=== PATIENT | male | born 1935 | race Caucasian/White ===

== ENCOUNTER 2016-12-04 06:14 | Day surgery (SDC) | payer MEDICARE, OTHER ==
[~2016-12-04 06:14] MED LIST: Lactated Ringers 1,000 ML IV SCH
[2016-12-04] MEDS ORDERED: Propofol 200 MG/20 ML SDV ONE (07:56)
[2016-12-04] MEDS ORDERED: fentaNYL 100 MCG/2 ML SDV ONE (07:57)
[2016-12-04 10:19] VITALS: BP 138/80
--- NOTE | 2016-12-04 14:06 | OR ---
DATE OF SURGERY: 12/04/2016 REFERRING PROVIDER: Karen Mota DO. PRE-OPERATIVE DIAGNOSES: History of colon polyps. Last colonoscopy was 12/07/2014 and the patient had recurrent linear sessile rectal polyp measuring 2 mm x 8 mm in size removed with multiple small bites of cold forceps. POST-OPERATIVE DIAGNOSES: Moderate left-sided diverticulosis. Otherwise normal colonoscopy without any recurrent rectal polyps. PROCEDURE: Flexible sigmoidoscopy. SURGEON: Eddie Adams M.D. ANESTHESIA: Monitored anesthesia care. BOWEL PREP: Good. DESCRIPTION OF OPERATION: Donn is an 81-year-old. The patient was brought to the endoscopy suite after discussing risks and benefits of the procedure. Informed consent was obtained for conscious sedation and colonoscopy with or without biopsy and/or polypectomy. We also discussed possibility of missed lesions. Pre-procedure exam was unremarkable. IV, oxygen, and monitors were placed. The patient was placed in the left lateral decubitus position. Sedation was administered and a digital Rectal exam was performed and unremarkable. Colonoscope was passed into the rectum and slowly advanced to the splenic flexure. The colonoscope was slowly withdrawn. Mucosa was closely observed in a direct circumferential manner. Descending and sigmoid colon were remarkable for some moderate diverticulosis. Retroflexion was performed. Rectal mucosa was unremarkable. There was no recurrent rectal polyp or polyps seen. Scope was removed. The patient tolerated the procedure well. The patient was monitored until that baseline status. Discharge instructions were reviewed and the patient was discharged in good condition. COMPLICATIONS: None. TOTAL TIME: 6 minutes. ESTIMATED BLOOD LOSS: None. RECOMMENDATIONS/FOLLOW-UP: The patient can likely be done with colonoscopies. He is good at least for another 3 years and then at that point, we can decide if he wants to undergo any further colon cancer screening depending on his health status and the patient preference at that time. I would like to kindly thank Karen Mota for this referral. DMB: 12/04/2016 11:44:03 MODL: 12/04/2016 13:48:28 /[id number]
--- NOTE | 2016-12-04 15:35 | OR ---
SURGERY DATE: 12/04/2016 REFERRING PROVIDER: Karen Mota DO. PREOPERATIVE DIAGNOSES: 1. History of Faith's esophagus. 2. Positive family history of stomach cancer. 3. Recent voice hoarseness. POSTOPERATIVE DIAGNOSES: 1. A 16 cm segment of Faith's esophagus (previously this had been 10 cm). The patient has only held his Plavix yesterday, so no biopsies were taken given risk of bleeding. I would recommend the patient holding Plavix for 5- 7 days prior to doing the number of biopsies that would be required. 2. Large hiatal hernia about 5 cm in length and fairly bulbous. 3. Mild gastritis. PROCEDURE: Esophagogastroduodenoscopy without any biopsies taken. SURGEON: Eddie Adams M.D. ANESTHESIA: Monitored anesthesia care. DESCRIPTION OF PROCEDURE: Donn is an 81-year-old male who was brought to the endoscope suite after discussion of risks and benefits (including but not limited to reaction to medication, bleeding, infection, aspiration, perforation). Informed consent was obtained for monitored anesthesia care and esophagogastroduodenoscopy along with possible biopsy and/or dilatation. Pre-procedure exam including oral cavity was unremarkable. IV, oxygen, and monitors were placed. Patient was placed in the left lateral position and sedation was administered. A bite block was placed gently and scope lightly lubricated and passed through the bite block and over the tongue. Hypopharynx and vocal cords were visualized and unremarkable. Scope was passed through the cricopharynx and into the esophagus. The scope was then passed through the distal esophagus and the GE junction was visualized and photographed. GE junction was remarkable for large bulbous hiatal hernia measured about 5 cm in length. Segment of Faith's esophagus was seen extending from the diaphragmatic opening up to 16 cm above this where the Z-line was located. I did not appreciate any gross mucosal irregularities or abnormalities. Biopsies were not taken given the patient only held his Plavix yesterday and this morning. Vocal cords were visualized and unremarkable. The scope was advanced into the stomach and gastric longo was suctioned. Pylorus was identified and intubated and then the scope was advanced to the third portion of the duodenum. The second and third portions of the duodenum were unremarkable. The duodenal bulb was visualized and unremarkable. Scope brought back into the stomach and the pylorus and antrum as well as the stomach, body, and fundus revealed some mild gastritis. The scope was retroflexed to visualize the angularis, fundus, body, and cardia. These were remarkable for some mild gastritis. The stomach was desufflated of air and then the scope was slowly withdrawn, and the esophagus was closely visualized during withdrawal all the way into the posterior pharynx. In the upper esophagus there was an area of heterotopic type mucosa. The patient tolerated the procedure well and went to recovery in stable condition. The patient was monitored until at baseline status. Findings and discharge instructions were reviewed and the patient was discharged in good condition. COMPLICATIONS: None. TOTAL TIME: 8 minutes. ESTIMATED BLOOD LOSS: None. RECOMMENDATIONS/FOLLOWUP: It is reassuring that there are no gross mucosal abnormalities or irregularities noted to the large segment of Faith's. Given the fact that the patient has only held his Plavix yesterday and this morning, biopsies were not taken given the risk of bleeding, given the shear number of biopsies that are typically recommended with Faith's. This would be four- quadrant biopsies every 2 cm. If the patient desires, he can return and have the procedure done after he has held the Plavix for 5-7 days; otherwise, we would just plan to repeat in about 3 years depending on health status and the patient preference at that time. I am going to have the patient start on famotidine 20 mg twice a day for GI prophylaxis given his mild gastritis as well as chronic Plavix use. I would like to kindly thank Dr. Karen Mota for this referral. DMB: 12/04/2016 11:40:01 MODL: 12/04/2016 15:28:49 /[id number]
== END 2016-12-04 09:45 | disposition home or self-care (01) ==
LOC: VM.SDS 06:14
PROVIDERS: ATTEND Family Medicine
DX: Z12.11 Encounter for screening for malignant neoplasm of colon (principal); K29.70 Gastritis, unspecified, without bleeding; K57.30 Diverticulosis of large intestine without perforation or abscess without bleeding; K22.70 Barrett's esophagus without dysplasia; K44.9 Diaphragmatic hernia without obstruction or gangrene; Z86.010 Personal history of colon polyps; E78.00 Pure hypercholesterolemia, unspecified; E03.9 Hypothyroidism, unspecified; I12.9 Hypertensive chronic kidney disease with stage 1 through stage 4 chronic kidney disease, or unspecified chronic kidney disease; N18.3 Chronic kidney disease, stage 3 (moderate); F41.9 Anxiety disorder, unspecified; Z98.890 Other specified postprocedural states; Z90.49 Acquired absence of other specified parts of digestive tract; Z79.899 Other long term (current) drug therapy; Z88.0 Allergy status to penicillin; Z88.8 Allergy status to other drugs, medicaments and biological substances; Z91.010 Allergy to peanuts; E53.8 Deficiency of other specified B group vitamins
CPT/HCPCS: 00810; 43235; G0105; J2704; J3010; J7120

== ENCOUNTER 2017-07-22 15:41 | Inpatient (IN) | payer MEDICARE, OTHER ==
[2017-07-22] MEDS ORDERED: Acetaminophen 325 MG Tab PO PRN (15:51)
[2017-07-22] MEDS ORDERED: Ondansetron 4 MG Tab.DIS PO PRN (15:51)
--- NOTE | 2017-07-22 16:10 | PCM.HP ---
H&P History of Present Illness - General Date of Service: 07/22/17 Admit Problem/Dx: Admission Diagnosis/Problem Admission Diagnosis/Problem Influenza due to influenza A virus - History of Present Illness Initial Comments - Free Text/Narative: 82 yo seen on 07/20 tested positive for influenza A got sick 5 pm on 07/18. Was started on Tamiflu took starting yesterday due to availability also on Zithromax but CXR did not show a pneumonia. Has a hx of chronic bronchitis and MAC has seen pulmonary before. Also has a hx of aspestos exposure. Is using proair. Has been coughing a lot not able to eat, has lost 10 lbs. He has CKD. Last Cr 1.37 in March. He did have the flu shot in March. Duration of Symptoms: Reports: Day(s): - Related Data Allergies/Adverse Reactions: Allergies Allergy/AdvReac Type Severity Reaction Status Date / Time peanut Allergy Anaphylactic Verified 12/04/16 06:41 Shock Penicillins Allergy Other Verified 12/04/16 06:41 sertraline HCl [From Zoloft] Allergy Fatigue Verified 12/04/16 06:41 trazodone Allergy Anxiety Verified 12/04/16 06:41 Home Medications: Home Meds Brimonidine/Timolol [Combigan 0.2%/0.5% Ophth Soln] 1 drop EYEBOTH BID 11/29/14 [History] Clopidogrel [Plavix] 75 mg PO DAILY 11/29/14 [History] Latanoprost [Xalatan 0.005% Ophth Soln] 1 drop EYEBOTH BEDTIME 11/29/14 [History ] Levothyroxine 112 mcg PO DAILY 11/29/14 [History] Pravastatin [Pravachol] 10 mg PO DAILY 11/29/14 [History] Sildenafil [Viagra] 1 tab PO DAILY PRN 11/29/14 [History] amLODIPine [Norvasc] 5 mg PO DAILY 11/29/14 [History] Albuterol [IJD: Ventolin HFA] 2 puff PO Q4H PRN 12/01/16 [History] Past Medical History HEENT History: Reports: Allergic Rhinitis, Glaucoma, Sinusitis Cardiovascular History: Reports: High Cholesterol, Hypertension Respiratory History: Reports: COPD, Other (See Below) Other Respiratory History: asbestos exposure Gastrointestinal History: Reports: Diverticulosis, PUD, Other (See Below) Other Gastrointestinal History: rectal adenoma. barretts esophagus Genitourinary History: Reports: Other (See Below) Other Genitourinary History: elevated PSA. ED Musculoskeletal History: Reports: Gout Neurological History: Reports: None, CVA (occipital stroke in 2013) Psychiatric History: Reports: Anxiety Endocrine/Metabolic History: Reports: Hypothyroidism Hematologic History: Reports: Anemia, Iron Deficiency Immunologic History: Reports: None Oncologic (Cancer) History: Reports: None Dermatologic History: Reports: None - Past Surgical History Head Surgeries/Procedures: Reports: None HEENT Surgical History: Reports: Other (See Below) Other HEENT Surgeries/Procedures: occiptal stroke Cardiovascular Surgical History: Reports: None GI Surgical History: Reports: Appendectomy, Hernia, Inguinal Musculoskeletal Surgical History: Reports: None Oncologic Surgical History: Reports: None Social & Family History - Tobacco Use Smoking Status *Q: Never Smoker Second Hand Smoke Exposure: Yes - Caffeine Use Caffeine Use: Reports: Coffee, Soda - Recreational Drug Use Recreational Drug Use: No Drug Use in Last 12 Months: No H&P Review of Systems - Review of Systems: Review Of Systems: See Below General: Reports: Fever, Chills, Malaise, Fatigue, Decreased Appetite, Weight Loss HEENT: Reports: Sinus Congestion, Sore Throat Pulmonary: Reports: Shortness of Breath, Cough, Sputum. Denies: Wheezing, Pleuritic Chest Pain Cardiovascular: Reports: Dyspnea on Exertion, Lightheadedness. Denies: Chest Pain Gastrointestinal: Denies: No Symptoms Musculoskeletal: Reports: Muscle Pain Skin: Reports: No Symptoms Psychiatric: Reports: No Symptoms Neurological: Reports: No Symptoms Hematologic/Lymphatic: Reports: Anemia Immunologic: Reports: No Symptoms Exam - Exam Exam: See Below - Vital Signs Weight: 84.459 kg - Exam General: Alert, Oriented, Mild Distress HEENT: Conjunctiva Clear, EACs Clear, EOMI, Hearing Intact, Mucosa Moist & [place] , Posterior Pharynx Clear, Pupils Equal, Pupils Reactive, TMs Clear Neck: Supple, Trachea Midline, Full Range of Motion. No: Lymphadenopathy Lungs: Decreased Breath Sounds, Rhonchi Cardiovascular: Regular Rate, Regular Rhythm GI/Abdominal Exam: Normal Bowel Sounds, Soft Extremities: Normal Inspection, No Pedal Edema. No: Mottled Skin: Warm, Dry, Intact Neurological: Cranial Nerves Intact Neuro Extensive - Mental Status: Alert, Oriented x3, Memory Intact Psychiatric: Alert, Normal Affect, Normal Mood Physical Exam Comments:: slight bruising noted below both eyes *Q Meaningful Use (ADM) - VTE *Q VTE Criteria *Q: - Stroke *Q Stroke Criteria *Q: - AMI *Q AMI Criteria *Q: - Problem List (1) CKD (chronic kidney disease) stage 3, GFR 30-59 ml/min SNOMED Code(s): 487863183 ICD Code: N18.3 - CHRONIC KIDNEY DISEASE, STAGE 3 (MODERATE) Status: Chronic Priority: High Current Visit: Yes (2) Influenza A SNOMED Code(s): 829216201 ICD Code: J10.1 - FLU DUE TO OTH IDENT INFLUENZA VIRUS W OTH RESP MANIFEST Status: Acute Priority: High Current Visit: Yes (3) Chronic bronchitis SNOMED Code(s): 18163229 ICD Code: J42 - UNSPECIFIED CHRONIC BRONCHITIS Status: Chronic Priority: High Current Visit: Yes Qualifiers: Chronic bronchitis type: simple Qualified Code(s): J41.0 - Simple chronic bronchitis (4) History of stroke SNOMED Code(s): 804754703 ICD Code: Z86.73 - PRSNL HX OF TIA (TIA), AND CEREB INFRC W/O RESID DEFICITS Status: Chronic Priority: Medium Current Visit: No (5) Essential (primary) hypertension SNOMED Code(s): 77932601 ICD Code: I10 - ESSENTIAL (PRIMARY) HYPERTENSION Status: Chronic Priority : Medium Current Visit: Yes (6) Puckett esophagus SNOMED Code(s): 397545493 ICD Code: K22.70 - PUCKETT'S ESOPHAGUS WITHOUT DYSPLASIA Status: Chronic Priority: Medium Current Visit: No Qualifiers: Puckett's esophagus type: without dysplasia Qualified Code(s): K22.70 - Puckett's esophagus without dysplasia (7) Iron deficiency anemia SNOMED Code(s): 96538337 ICD Code: D50.9 - IRON DEFICIENCY ANEMIA, UNSPECIFIED Status: Acute Priority: Medium Current Visit: Yes Qualifiers: Iron deficiency anemia type: unspecified iron deficiency Qualified Code(s) : D50.9 - Iron deficiency anemia, unspecified (8) Mycobacterial infection, non-TB SNOMED Code(s): 438720975 ICD Code: A31.9 - MYCOBACTERIAL INFECTION, UNSPECIFIED Status: Acute Priority: Low Current Visit: No (9) Rhinitis SNOMED Code(s): 87543484 ICD Code: J31.0 - CHRONIC RHINITIS Status: Acute Priority: Medium Current Visit: Yes Qualifiers: Allergic rhinitis trigger: unspecified Allergic rhinitis seasonality: non- seasonal Problem List Initiated/Reviewed/Updated: Yes Orders Last 24hrs: Active Orders 24 hr Category Date Time Status Admission Status [Patient Status] [ADT] Routine ADT 07/22/17 15:45 Active Blood Glucose Check, Bedside [RC] BIDMEALS Care 07/22/17 15:51 Ordered Intake and Output [RC] QSHIFT Care 07/22/17 15:53 Ordered Oxygen Therapy [RC] PRN Care 07/22/17 15:53 Ordered RT Aerosol Therapy [RC] ASDIRECTED Care 07/22/17 15:54 Ordered Up With Assistance [RC] ASDIRECTED Care 07/22/17 15:51 Ordered VTE/DVT Education [RC] PER UNIT ROUTINE Care 07/22/17 15:53 Ordered Vital Signs [RC] Q4H Care 07/22/17 15:53 Ordered Regular Diet [DIET] Diet 07/22/17 Dinner Ordered Chest 2V [CR] Routine Exams 07/22/17 15:51 Ordered BASIC METABOLIC PANEL,BMP [CHEM] Stat Lab 07/22/17 15:51 Ordered CBC WITH AUTO DIFF [HEME] Stat Lab 07/22/17 15:51 Ordered Acetaminophen [Tylenol] Med 07/22/17 15:51 Ordered 650 mg PO Q4H PRN Albuterol/Ipratropium [DuoNeb 3.0-0.5 MG/3 ML] Med 07/22/17 16:00 Ordered 3 ml NEB QID Lactated Ringers @ 125 MLS/HR(1000ml) Med 07/22/17 16:00 Ordered Lactated Ringers [Ringers, Lactated] 1,000 ml IV ASDIRECTED Ondansetron [Zofran ODT] Med 07/22/17 15:51 Ordered 4 mg PO Q4H PRN Resuscitation Status Routine Resus Stat 07/22/17 15:51 Ordered Medication Orders Acetaminophen (Tylenol) 650 mg PO Q4H PRN PRN Reason: Pain (Mild 1-3)/fever Albuterol/Ipratropium (Duoneb 3.0-0.5 Mg/3 Ml) 3 ml NEB QID LARRY Lactated Ringer's (Ringers, Lactated) 1,000 mls @ 125 mls/hr IV ASDIRECTED [facility] Ondansetron HCl (Zofran Odt) 4 mg PO Q4H PRN PRN Reason: nausea, able to take PO Assessment/Plan Comment:: Influenza A Dehydration with CKD Chronic bronchitis with exacerbation due to influenza Chronic iron deficiency anemia Plan Check labs and X-ray Continue Tamiflu but with renal dosing Continue home meds IV fluids Scheduled nebs May need prednisone we will monitor Oxygen Doubt a secondary infection this early so we will decide after reviewing labs if he needs to continue zithromax although with his chronic lung disease it is probably fine to just finish his course will review labs to decide on dvt prophylaxis
[2017-07-22] MEDS: Albuterol/Ipratropium 3.0-0.5 MG/3 ML Neb Soln NEB SCH ×2 (16:34→19:50)
[2017-07-22] MEDS: Lactated Ringers 1,000 ML IV SCH (16:35)
[2017-07-22] MEDS: Oseltamivir 30 MG Cap PO SCH ×2 (17:46→19:51)
[2017-07-22] MEDS ORDERED: Levofloxacin 500 MG Tab PO ONE (19:04)
[2017-07-22] MEDS: Latanoprost 0.005% Ophth Soln 2.5 ML Bottle EYEBOTH SCH (19:51)
[2017-07-23] MEDS: Lactated Ringers 1,000 ML IV SCH (00:33)
[2017-07-23] MEDS: Albuterol/Ipratropium 3.0-0.5 MG/3 ML Neb Soln NEB SCH (06:31)
[2017-07-23] MEDS ORDERED: Levothyroxine 112 MCG Tab PO SCH (08:00)
[2017-07-23] MEDS ORDERED: Azithromycin 250 MG Tab PO SCH (08:00)
[2017-07-23] MEDS ORDERED: Albuterol 0.083% 2.5 MG/3 ML Neb Soln NEB PRN (08:25)
[2017-07-23] MEDS ORDERED: predniSONE 20 MG Tab PO ONE (08:26)
[2017-07-23] MEDS ORDERED: Take Home: Albuterol 6.7 GM Inhaler, 1 Inhaler Pack INH PRN (08:30)
[2017-07-23] MEDS ORDERED: Levofloxacin 500 MG Tab PO SCH (08:30)
--- NOTE | 2017-07-23 09:07 | PN ---
Progress Note for KELSI BAUER Date: 07/23/2017 Room #: VM.203 SUBJECTIVE: This is a hospital day #2, on an 82-year-old admitted with influenza and pneumonia. He has a left lower lobe infiltrate. He is having some lower rib pain from coughing. He states he is not feeling any better, but not any worse. He has been afebrile. Oxygen saturations had been at 90% or above. When he coughs the lower rib pain is worse. He is eating and drinking. OBJECTIVE: Vital Signs: Temperature 97.4, pulse 83, blood pressure 152/89, respiratory rate 18, and O2 of 95% on room air. General: He is in no acute distress. Heart: Regular rate and rhythm. Lungs: Lung sounds show some decreased entry throughout. He has more rhonchi noted over the left base. He has some mild expiratory wheezing. Abdomen: Positive bowel sounds. Soft and nontender. Extremities: Warm and dry. No edema. Mental Status: Alert and orientated x3. LABORATORY DATA: Lab work shows a white count of 5.6, hemoglobin 9.9, and platelets 251. Sodium 139, potassium 3.6, chloride 103, bicarbonate 26, BUN 17, creatinine 1.4, glucose 93, calcium 8.3. ASSESSMENT AND PLAN: 1. Influenza B with left lower lobe pneumonia. He was started on Levaquin yesterday. We will discontinue azithromycin. Continue 500 mg daily for renal dosing as well. 2. Chronic bronchitis. We will change his nebs to p.r.n. as they are making him cough more. I will give him just albuterol. We will restart his ProAir. We will get him on a flutter valve. We will start some Mucinex to help with cough and I will give him a dose of 20 mg of prednisone likely due to exacerbation from the pneumonia. 3. Remote history of stroke. 4. Essential hypertension. Blood pressures are mildly up today. He is on his Norvasc. We will stop fluids. 5. Chronic kidney disease with mild dehydration. His creatinine improved from 1.6 to 1.4, which is in his baseline. 6. Chronic iron-deficiency anemia with worsening hemoglobin, probably due to some hemodilution. We will repeat tomorrow. 7. History of Faith's esophagus. 8. History of MAC. 9. Chronic rhinitis. 10.Rib pain from coughing. PLAN: At this point, the patient will continue oral Levaquin. We will give him a dose of 20 mg of prednisone. We will stop fluids. We will have Mucinex, available flutter valve. We will restart his ProAir. We will change the nebs to p.r.n. We will see how he does and anticipate that likely he may be able to be discharged home as soon as tomorrow. MKA: 07/23/2017 08:31:18 MODL: 07/23/2017 09:01:50 /[id number]
[2017-07-23] MEDS: Oseltamivir 30 MG Cap PO SCH ×2 (10:04→20:38)
[2017-07-23] MEDS: amLODIPine 5 MG Tab PO SCH (10:04)
[2017-07-23] MEDS: guaiFENesin 600 MG Tab.ER PO SCH ×2 (10:05→20:38)
[2017-07-23] MEDS: Clopidogrel 75 MG Tab PO SCH (10:09)
[2017-07-23] MEDS ORDERED: Simvastatin 10 MG Tab PO SCH (20:00)
[2017-07-23] MEDS: Latanoprost 0.005% Ophth Soln 2.5 ML Bottle EYEBOTH SCH (20:39)
[2017-07-24 05:43] VITALS: BP 131/81
[2017-07-24] MEDS ORDERED: Levofloxacin 500 MG Tab PO SCH (07:00)
[2017-07-24] MEDS ORDERED: Levothyroxine 112 MCG Tab PO SCH (07:00)
[2017-07-24] MEDS: amLODIPine 5 MG Tab PO SCH (07:47)
[2017-07-24] MEDS: guaiFENesin 600 MG Tab.ER PO SCH (07:47)
[2017-07-24] MEDS: Clopidogrel 75 MG Tab PO SCH (07:47)
[2017-07-24] MEDS: Oseltamivir 30 MG Cap PO SCH (07:47)
[2017-07-24] MEDS ORDERED: predniSONE 20 MG Tab PO SCH (08:33)
--- NOTE | 2017-07-25 13:50 | DISCH ---
PRIMARY DISCHARGE DIAGNOSES: 1. Influenza A. 2. Left mid lung pneumonia, suspected bacterial, but could be related to influenza, not improving on outpatient azithromycin. Blood cultures and sputum cultures were not done as he was already on antibiotics and he did not meet criteria for sepsis. 3. Remote history of stroke. 4. Essential hypertension. 5. Chronic kidney disease with mild dehydration, improved with a creatinine of 1.4 on discharge. 6. Acute on chronic anemia due to hemodilution. His hemoglobin was stable at 10.4 on discharge. 7. History of Faith's esophagus. 8. History of MAC. 9. Chronic rhinitis. 10.Rib pain from coughing, improved. 11.Bronchitis with exacerbation due to pneumonia and influenza, improving on prednisone. REASON FOR ADMISSION: On the date of admission, this 82-year-old male came to the clinic. He had had known influenza for about 4 days, was diagnosed 2 days previous, and has been on Tamiflu for 1 day, but he was not eating. He was not drinking. He was doing poorly. He was dehydrated. He was short of breath. He was admitted to [facility]. He had laboratories showing his creatinine to have went up to 1.6, but his baseline is around 1.3 to 1.5-1.6. He, otherwise, got IV fluids. He did not require any oxygen. He was placed on scheduled nebulizers, but these seemed to make him cough more, so they were stopped and changed to p.r.n. He was not needing nebulizers, but did get a dose of oral prednisone 20 mg, which seemed to help his breathing and wheezing and overall lungs sounds were improving. He was up. He was ambulatory in his room. Overall, he was still feeling weak and tired, but better and this was expressed that this was to be expected after his influenza illness. His Tamiflu was adjusted for renal dosing. On discharge, he had normal white count. He never had an elevated white count during his stay. PHYSICAL EXAMINATION: VITAL SIGNS: Discharge vitals; temperature 97.3, pulse 80, blood pressure 131/81, respiratory rate 19, and O2 of 93% on room air. GENERAL: He is in no acute distress. HEART: Regular rate and rhythm. S1 and S2 without murmur. RESPIRATORY: Lungs sounds show some rhonchi throughout with mild expiratory wheezing, but overall I feel it is improved. EXTREMITIES: Warm and dry. No edema. No calf tenderness. MENTAL STATUS: Alert and orientated x3. DISCHARGE PLANS AND INSTRUCTIONS: He will see Dr. Mota in 1 week for post- hospital followup in the clinic. No x-ray will be needed unless his symptoms worsen. He will also take Tylenol as needed for pain. He will be on prednisone 20 mg daily for 4 more days, Levaquin 500 mg daily for 3 days, and Zithromax is stopped. Tamiflu, he will complete his last 3 doses. He has a 75 mg dose at home. His creatinine did improve slightly, so we will just have him do this rather than picking up a new supply. He cannot also split the capsules. Otherwise, he will do cough, deep breaths. Use his ProAir inhaler as needed. Use Mucinex. Deep vein thrombosis prophylaxis was not started during his stay due to concern for his drop in hemoglobin. He did have a short stay less than 48 hours and was encouraged to be up and ambulating. MKA: 07/24/2017 08:38:58 MODL: 07/25/2017 13:03:42 /[id number]
== END 2017-07-24 09:35 | disposition home or self-care (01) | DRG 195 ==
LOC: VM.MS 15:45
PROVIDERS: ADMIT Internal Medicine; ATTEND Internal Medicine
DX: J11.00 Influenza due to unidentified influenza virus with unspecified type of pneumonia (principal); J42 Unspecified chronic bronchitis; Z86.73 Personal history of transient ischemic attack (TIA), and cerebral infarction without residual deficits; K22.70 Barrett's esophagus without dysplasia; D50.9 Iron deficiency anemia, unspecified; J31.0 Chronic rhinitis; E86.0 Dehydration; I12.9 Hypertensive chronic kidney disease with stage 1 through stage 4 chronic kidney disease, or unspecified chronic kidney disease; N18.3 Chronic kidney disease, stage 3 (moderate); Z88.0 Allergy status to penicillin; Z88.8 Allergy status to other drugs, medicaments and biological substances; Z91.010 Allergy to peanuts; Z79.02 Long term (current) use of antithrombotics/antiplatelets; Z79.899 Other long term (current) drug therapy; H40.9 Unspecified glaucoma; J44.9 Chronic obstructive pulmonary disease, unspecified; Z77.090 Contact with and (suspected) exposure to asbestos; F41.9 Anxiety disorder, unspecified; E03.9 Hypothyroidism, unspecified
CPT/HCPCS: 36415; 71046; 80048; 82962; 85025; 94640; 94667; 94668; A9270-GY; J7120; J7620-GY

== ENCOUNTER 2021-04-29 11:58 | Emergency (ER) | payer MEDICARE, OTHER ==
[2021-04-29] MEDS ORDERED: Sodium Chloride 0.9% 1,000 ML IV ONE (12:07)
[2021-04-29] MEDS ORDERED: Sodium Chloride 0.9% 10 ML Syringe FLUSH PRN (12:07)
[2021-04-29] MEDS ORDERED: Ondansetron 4 MG/2 ML SDV IVPUSH ONE (12:11)
--- NOTE | 2021-04-29 12:15 | EDM.PDOC ---
ED HPI GENERAL MEDICAL PROBLEM - General Chief Complaint: General Stated Complaint: FATIGUE Time Seen by Provider: 04/29/21 12:05 Source of Information: Reports: Patient History Limitations: Reports: No Limitations - History of Present Illness INITIAL COMMENTS - FREE TEXT/NARRATIVE: Patient presents to the ED complaining of weakness and fatigue. He received COVID booster on and felt fine. However on Thursday developed nausea, diarrhea and fatigue. Has had very poor po intake of both food and water. No complaints of chest pain, sob. No urinary symptoms. No longer having nausea or diarrhea. Chief complaint today is weakness and fatigue. Onset: Gradual Severity: Moderate Associated Symptoms: Reports: Loss of Appetite, Malaise, Weakness - Related Data Allergies Allergy/AdvReac Type Severity Reaction Status Date / Time peanut Allergy Severe Anaphylactic Verified 07/05/20 08:29 Shock Penicillins Allergy Other Verified 07/05/20 08:29 sertraline HCl [From Zoloft] AdvReac Fatigue Verified 07/05/20 08:29 trazodone AdvReac Anxiety Verified 07/05/20 08:29 Home Meds: Home Meds Brimonidine/Timolol [Combigan 0.2%/0.5% Ophth Soln] 1 drop EYEBOTH BID 11/29/14 [History] Clopidogrel [Plavix] 75 mg PO DAILY 11/29/14 [History] Latanoprost [Xalatan 0.005% Ophth Soln] 1 drop EYEBOTH BEDTIME 11/29/14 [History] Levothyroxine 112 mcg PO DAILY 11/29/14 [History] amLODIPine [Norvasc] 5 mg PO DAILY 11/29/14 [History] Albuterol [Proventil HFA] 2 puff INH Q6H PRN 06/06/20 [History] Triamcinolone Acetonide [Kenalog 0.1% Crm] 1 applic TOP BID PRN 06/06/20 [History] Umeclidinium Brm/Vilanterol Tr [Anoro Ellipta 62.5-25 MCG] 1 puff IH DAILY 06/06/20 [History] Cyanocobalamin (Vitamin B-12) [Vitamin B-12] 1,000 mg PO DAILY 06/28/20 [History] Furosemide [Lasix] 20 mg PO DAILY 06/28/20 [History] Omeprazole 40 mg PO DAILY 07/17/20 [History] Past Medical History HEENT History: Reports: Allergic Rhinitis, Glaucoma, Sinusitis Cardiovascular History: Reports: High Cholesterol, Hypertension Respiratory History: Reports: COPD, Other (See Below) Other Respiratory History: asbestos exposure Gastrointestinal History: Reports: Diverticulosis, PUD, Other (See Below) Other Gastrointestinal History: rectal adenoma. barretts esophagus Genitourinary History: Reports: Chronic Renal Insuffiency, Other (See Below) Other Genitourinary History: elevated PSA. ED Musculoskeletal History: Reports: Gout Neurological History: Reports: None, CVA Psychiatric History: Reports: Anxiety Endocrine/Metabolic History: Reports: Hypothyroidism Hematologic History: Reports: Anemia, B12 Deficiency, Iron Deficiency Immunologic History: Reports: None Oncologic (Cancer) History: Reports: None Dermatologic History: Reports: None - Infectious Disease History Infectious Disease History: Reports: Chicken Pox, Influenza - Past Surgical History Head Surgeries/Procedures: Reports: None HEENT Surgical History: Reports: Other (See Below) Other HEENT Surgeries/Procedures: occiptal stroke Cardiovascular Surgical History: Reports: None GI Surgical History: Reports: Appendectomy, Hernia, Inguinal Musculoskeletal Surgical History: Reports: None Oncologic Surgical History: Reports: None Social & Family History - Family History Family Medical History: No Pertinent Family History - Caffeine Use Caffeine Use: Reports: Coffee ED ROS GENERAL - Review of Systems Review Of Systems: See Below Constitutional: Reports: Weakness, Fatigue HEENT: Reports: No Symptoms Respiratory: Reports: No Symptoms Cardiovascular: Reports: No Symptoms Endocrine: Reports: No Symptoms GI/Abdominal: Reports: No Symptoms : Reports: No Symptoms Musculoskeletal: Reports: No Symptoms Skin: Reports: No Symptoms Neurological: Reports: No Symptoms Psychiatric: Reports: No Symptoms Hematologic/Lymphatic: Reports: No Symptoms Immunologic: Reports: No Symptoms ED EXAM, GENERAL - Physical Exam Exam: See Below Exam Limited By: No Limitations General Appearance: Alert, WD/WN, No Apparent Distress Ears: Normal External Exam, Normal Canal, Hearing Grossly Normal, Normal TMs Ear Exam: Bilateral Ear: Auricle Normal, Canal Normal, TM normal Nose: Normal Inspection, Normal Mucosa, No Blood Throat/Mouth: Normal Inspection, Normal Lips, Normal Teeth, Normal Gums, Normal Oropharynx, Normal Voice, No Airway Compromise Head: Atraumatic, Normocephalic Neck: Normal Inspection, Supple, Non-Tender, Full Range of Motion Respiratory/Chest: No Respiratory Distress, Lungs Clear, Normal Breath Sounds, No Accessory Muscle Use, Chest Non-Tender Cardiovascular: Normal Peripheral Pulses, Regular Rate, Rhythm, No Edema, No Gallop, No JVD, No Murmur, No Rub GI/Abdominal: Normal Bowel Sounds, Soft, Non-Tender, No Organomegaly, No Distention, No Abnormal Bruit, No Mass Back Exam: Normal Inspection, Full Range of Motion, NT Extremities: Normal Inspection, Normal Range of Motion, Non-Tender, Normal Capillary Refill, No Pedal Edema Neurological: Alert, Oriented, CN II-XII Intact, Normal Cognition, Normal Gait, Normal Reflexes, No Motor/Sensory Deficits Psychiatric: Normal Affect, Normal Mood Skin Exam: Warm, Dry, Intact, Normal Color, No Rash Lymphatic: No Adenopathy #1 Interpretation EKG Date: 04/29/21 Time: 12:14 Rhythm: NSR Rate (Beats/Min): 79 [place]: Normal P-Wave: Present QRS: Normal ST-T: Normal QT: Normal Comparison: NA - No Prior EKG Course - Vital Signs Last Recorded V/S: Last Vital Signs Temp 36.6 C 04/29/21 12:00 Pulse 96 04/29/21 12:00 Resp 18 04/29/21 12:00 BP 141/81 H 04/29/21 12:00 Pulse Ox 95 04/29/21 12:00 - Orders/Labs/Meds Orders: Active Orders 24 hr Category Date Time Status Saline Lock Insert [OM.PC] Routine Oth 04/29/21 12:07 Ordered Labs: Laboratory Tests 04/29/21 04/29/21 04/29/21 Range/Units 12:05 12:05 12:05 WBC (4.0-10.0) x10^3/uL RBC (4.5-6.0) x10^6/uL Hgb (14.0-18.0) g/dL Hct (40.0-52.0) % MCV (78.0-93.0) fL MCH (26.0-32.0) pg MCHC (32.0-36.0) g/dL RDW Coeff of [place] (10.0-15.0) % Plt Count (130-400) x10^3/uL Immature Gran % (Auto) (0.00-0.43) % Neut % (Auto) (50.0-80.0) % Lymph % (Auto) (25.0-50.0) % [place] % (Auto) (2.0-11.0) % Eos % (Auto) (0.0-4.0) % Baso % (Auto) (0.2-1.2) % Neut # (Auto) (1.8-7.7) x10^3/uL Lymph # (Auto) (1.0-4.8) x10^3/uL [place] # (Auto) (0.0-0.8) x10^3/uL Eos # (Auto) (0.0-0.5) x10^3/uL Baso # (Auto) (0.0-0.2) x10^3/uL Immature Gran # (Auto) (0.00-0.07) x10^3/uL Sodium (136-145) mmol/L Potassium (3.5-5.1) mmol/L Chloride (98-107) mmol/L Carbon Dioxide (21-32) mmol/L Anion Gap (5-15) mmol/L BUN (7-18) mg/dL Creatinine (0.70-1.30) mg/dL Est Cr Clr Drug Dosing mL/min Estimated GFR (MDRD) Glucose (70-99) mg/dL Lactic Acid (0.4-2.0) mmol/L Calcium (8.5-10.1) mg/dL Corrected Calcium (8.5-10.1) mg/dL Total Bilirubin (0.2-1.0) mg/dL AST (15-37) U/L ALT (16-63) U/L Alkaline Phosphatase (46-116) U/L Ammonia (19-54) ug/dL Creatine Kinase (39-308) U/L Troponin I High Sens (<=76) ng/L C-Reactive Protein (<=0.9) mg/dL NT-Pro-B Natriuret Pep (<=450) pg/mL Total Protein (6.4-8.2) g/dL Albumin (3.4-5.0) g/dL Globulin Albumin/Globulin Ratio Urine Color Yellow (YELLOW) Urine Appearance Clear (CLEAR) Urine pH 6.0 (5.0-8.0) Ur Specific Jay 1.025 Urine Protein Trace H (NEGATIVE) mg/dL Urine Glucose (UA) Negative (NEGATIVE) mg/dL Urine Ketones 15 H (NEGATIVE) mg/dL Urine Occult Blood Trace-intact H (NEGATIVE) Urine Nitrite Negative (NEGATIVE) Urine Bilirubin Small H (NEGATIVE) Urine Urobilinogen 0.2 (0.2) EU/dL Ur Leukocyte Esterase Negative (NEGATIVE) Urine RBC 0-5 (NOT SEEN) /HPF Urine WBC 0-5 (NOT SEEN) /HPF Urine Bacteria Occasional H (NOT SEEN) /HPF Urine Mucus Moderate H (NOT SEEN) /LPF Influenza Type A RNA Negative (NEGATIVE) RSV RNA (INAAT) Negative (NEGATIVE) Influenza Type B RNA Negative (NEGATIVE) SARS-CoV-2 RNA (SUSAN) Negative Negative (NEGATIVE) 04/29/21 04/29/21 04/29/21 Range/Units 12:15 12:15 12:15 WBC 7.8 (4.0-10.0) x10^3/uL RBC 4.69 (4.5-6.0) x10^6/uL Hgb 15.0 (14.0-18.0) g/dL Hct 44.0 (40.0-52.0) % MCV 93.8 H (78.0-93.0) fL MCH 32.0 (26.0-32.0) pg MCHC 34.1 (32.0-36.0) g/dL RDW Coeff of [place] 12.5 (10.0-15.0) % Plt Count 321 (130-400) x10^3/uL Immature Gran % (Auto) 0.10 (0.00-0.43) % Neut % (Auto) 78.1 (50.0-80.0) % Lymph % (Auto) 8.0 L (25.0-50.0) % [place] % (Auto) 9.7 (2.0-11.0) % Eos % (Auto) 3.6 (0.0-4.0) % Baso % (Auto) 0.5 (0.2-1.2) % Neut # (Auto) 6.1 (1.8-7.7) x10^3/uL Lymph # (Auto) 0.6 L (1.0-4.8) x10^3/uL [place] # (Auto) 0.8 (0.0-0.8) x10^3/uL Eos # (Auto) 0.3 (0.0-0.5) x10^3/uL Baso # (Auto) 0.0 (0.0-0.2) x10^3/uL Immature Gran # (Auto) 0.01 (0.00-0.07) x10^3/uL Sodium 138 (136-145) mmol/L Potassium 3.6 (3.5-5.1) mmol/L Chloride 102 (98-107) mmol/L Carbon Dioxide 26 (21-32) mmol/L Anion Gap 13.6 (5-15) mmol/L BUN 19 H (7-18) mg/dL Creatinine 1.7 H (0.70-1.30) mg/dL Est Cr Clr Drug Dosing 34.24 mL/min Estimated GFR (MDRD) 38 Glucose 139 H (70-99) mg/dL Lactic Acid (0.4-2.0) mmol/L Calcium 9.4 (8.5-10.1) mg/dL Corrected Calcium 10.0 (8.5-10.1) mg/dL Total Bilirubin 0.5 (0.2-1.0) mg/dL AST 31 (15-37) U/L ALT 47 (16-63) U/L Alkaline Phosphatase 98 (46-116) U/L Ammonia 19 (19-54) ug/dL Creatine Kinase 35 L (39-308) U/L Troponin I High Sens 8 (<=76) ng/L C-Reactive Protein 17.3 H (<=0.9) mg/dL NT-Pro-B Natriuret Pep 137 (<=450) pg/mL Total Protein 7.9 (6.4-8.2) g/dL Albumin 3.2 L (3.4-5.0) g/dL Globulin 4.7 Albumin/Globulin Ratio 0.68 Urine Color (YELLOW) Urine Appearance (CLEAR) Urine pH (5.0-8.0) Ur Specific Jay Urine Protein (NEGATIVE) mg/dL Urine Glucose (UA) (NEGATIVE) mg/dL Urine Ketones (NEGATIVE) mg/dL Urine Occult Blood (NEGATIVE) Urine Nitrite (NEGATIVE) Urine Bilirubin (NEGATIVE) Urine Urobilinogen (0.2) EU/dL Ur Leukocyte Esterase (NEGATIVE) Urine RBC (NOT SEEN) /HPF Urine WBC (NOT SEEN) /HPF Urine Bacteria (NOT SEEN) /HPF Urine Mucus (NOT SEEN) /LPF Influenza Type A RNA (NEGATIVE) RSV RNA (INAAT) (NEGATIVE) Influenza Type B RNA (NEGATIVE) SARS-CoV-2 RNA (SUSAN) (NEGATIVE) 04/29/21 Range/Units 12:15 WBC (4.0-10.0) x10^3/uL RBC (4.5-6.0) x10^6/uL Hgb (14.0-18.0) g/dL Hct (40.0-52.0) % MCV (78.0-93.0) fL MCH (26.0-32.0) pg MCHC (32.0-36.0) g/dL RDW Coeff of [place] (10.0-15.0) % Plt Count (130-400) x10^3/uL Immature Gran % (Auto) (0.00-0.43) % Neut % (Auto) (50.0-80.0) % Lymph % (Auto) (25.0-50.0) % [place] % (Auto) (2.0-11.0) % Eos % (Auto) (0.0-4.0) % Baso % (Auto) (0.2-1.2) % Neut # (Auto) (1.8-7.7) x10^3/uL Lymph # (Auto) (1.0-4.8) x10^3/uL [place] # (Auto) (0.0-0.8) x10^3/uL Eos # (Auto) (0.0-0.5) x10^3/uL Baso # (Auto) (0.0-0.2) x10^3/uL Immature Gran # (Auto) (0.00-0.07) x10^3/uL Sodium (136-145) mmol/L Potassium (3.5-5.1) mmol/L Chloride (98-107) mmol/L Carbon Dioxide (21-32) mmol/L Anion Gap (5-15) mmol/L BUN (7-18) mg/dL Creatinine (0.70-1.30) mg/dL Est Cr Clr Drug Dosing mL/min Estimated GFR (MDRD) Glucose (70-99) mg/dL Lactic Acid 2.2 H* (0.4-2.0) mmol/L Calcium (8.5-10.1) mg/dL Corrected Calcium (8.5-10.1) mg/dL Total Bilirubin (0.2-1.0) mg/dL AST (15-37) U/L ALT (16-63) U/L Alkaline Phosphatase (46-116) U/L Ammonia (19-54) ug/dL Creatine Kinase (39-308) U/L Troponin I High Sens (<=76) ng/L C-Reactive Protein (<=0.9) mg/dL NT-Pro-B Natriuret Pep (<=450) pg/mL Total Protein (6.4-8.2) g/dL Albumin (3.4-5.0) g/dL Globulin Albumin/Globulin Ratio Urine Color (YELLOW) Urine Appearance (CLEAR) Urine pH (5.0-8.0) Ur Specific [place] Urine Protein (NEGATIVE) mg/dL Urine Glucose (UA) (NEGATIVE) mg/dL Urine Ketones (NEGATIVE) mg/dL Urine Occult Blood (NEGATIVE) Urine Nitrite (NEGATIVE) Urine Bilirubin (NEGATIVE) Urine Urobilinogen (0.2) EU/dL Ur Leukocyte Esterase (NEGATIVE) Urine RBC (NOT SEEN) /HPF Urine WBC (NOT SEEN) /HPF Urine Bacteria (NOT SEEN) /HPF Urine Mucus (NOT SEEN) /LPF Influenza Type A RNA (NEGATIVE) RSV RNA (INAAT) (NEGATIVE) Influenza Type B RNA (NEGATIVE) SARS-CoV-2 RNA (SUSAN) (NEGATIVE) Meds: Medications Discontinued Medications Generic Name Dose Route Start Last Admin Trade Name Freq PRN Reason Stop Dose Admin Sodium Chloride 1,000 mls @ 999 mls/hr 04/29/21 12:07 04/29/21 12:30 Normal Saline IV 04/29/21 13:07 999 mls/hr ONETIME ONE Administration Ondansetron HCl 4 mg 04/29/21 12:11 Ondansetron 4 Mg/2 Ml Sdv IVPUSH 04/29/21 12:12 ONETIME ONE Sodium Chloride 10 ml 04/29/21 12:07 Sodium Chloride 0.9% 10 Ml Syringe FLUSH ASDIRECTED PRN Keep Vein Open - Radiology Interpretation Free Text/Narrative:: Chest x-ray negative for acute illness/process Departure - Departure Time of Disposition: 13:55 Disposition: Home, Self-Care 01 Condition: Good Clinical Impression: Dehydration symptoms - Discharge Information *PRESCRIPTION DRUG MONITORING PROGRAM REVIEWED*: Not Applicable *COPY OF PRESCRIPTION DRUG MONITORING REPORT IN PATIENT JAGDISH: Not Applicable Instructions: Dehydration, Elderly, [id number] Referrals: Karen Mota, [Primary Care Provider] - Forms: ED Department Discharge Additional Instructions: Follow up with Dr. Mota if symptoms persist or worsen Symptoms likely to be caused by your COVID-19 booster You need to drink plenty of fluids Need to be up and moving around as much as you can tolerate Please call or return if your symptoms do not improve Sepsis Event Note (ED) - Focused Exam Vital Signs: Vital Signs Temp Pulse Resp BP Pulse Ox 04/29/21 12:00 36.6 C 96 18 141/81 H 95 ED Communication - ED Communication Date/Time Date: 04/29/21 Time Called: 13:30 - Discussed Case With (1) Discussed Case With (1): Other Provider (Patient PCP called, case reviewed. Agrees could be secondary to vaccine booster, dehydration. Close follow up in clinic if symptoms do not improve.) - Problem List & Annotations (1) Dehydration symptoms SNOMED Code(s): 723520697 Code(s): R63.8 - OTHER SYMPTOMS AND SIGNS CONCERNING FOOD AND FLUID INTAKE Status: Acute Priority: Medium - My Orders Last 24 Hours: My Active Orders 04/29/21 12:07 Saline Lock Insert [OM.PC] Routine - Assessment/Plan Last 24 Hours: My Active Orders 04/29/21 12:07 Saline Lock Insert [OM.PC] Routine Assessment:: vaccine booster adverse effects Plan: Follow up with Dr. Mota if symptoms persist or worsen Symptoms likely to be caused by your COVID-19 booster You need to drink plenty of fluids Need to be up and moving around as much as you can tolerate Please call or return if your symptoms do not improve
[2021-04-29 12:38] VITALS: BP 141/81; PULSE 96
[2021-04-29 12:54] LABS: ANION GAP 13.6 mmol/L (5-15)
--- NOTE | 2021-04-29 12:54 | CR ---
[id number] RAD/RAD Chest PA or AP 1V EXAM: RAD Chest PA or AP 1V INDICATION: FATIGUE. COMPARISON: March 29, 2020. DISCUSSION/IMPRESSION: Nodular opacities projecting over the lungs is consistent with partially calcified pleural plaques seen on prior CT. Additionally there is an area of scarring in the left mid/lower lung accounting for linear opacity on radiograph. No evidence of pneumonia. No pleural effusion or pneumothorax. 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 Carlin Martinez MD 04/29/21 [id number] Thank you for allowing us to participate in the care of your patient.
[2021-04-29 13:35] LABS: CORONAVIRUS COVID-19 NAA NEGATIVE (NEGATIVE)
[2021-04-29 13:37] LABS: RESPIRATORY SYNCYTIAL VIR NAA NEGATIVE (NEGATIVE)
== END 2021-04-29 13:55 | disposition home or self-care (01) ==
LOC: VM.ED 11:58
DX: E86.0 Dehydration (principal); E78.00 Pure hypercholesterolemia, unspecified; I12.9 Hypertensive chronic kidney disease with stage 1 through stage 4 chronic kidney disease, or unspecified chronic kidney disease; N18.9 Chronic kidney disease, unspecified; J44.9 Chronic obstructive pulmonary disease, unspecified; E03.9 Hypothyroidism, unspecified; Z86.73 Personal history of transient ischemic attack (TIA), and cerebral infarction without residual deficits; Z88.0 Allergy status to penicillin; Z91.010 Allergy to peanuts; Z88.8 Allergy status to other drugs, medicaments and biological substances; Z79.899 Other long term (current) drug therapy; Z79.02 Long term (current) use of antithrombotics/antiplatelets; Z20.822 Contact with and (suspected) exposure to COVID-19
CPT/HCPCS: 0241U; 71045; 80053; 81001; 82140; 82550; 83605; 83880; 84484; 85025; 86140; 93005; 93010; 99284; 99285-25; J7030; U0002

== ENCOUNTER 2024-02-11 15:04 | Emergency (ER) | payer MEDICARE, OTHER ==
[2024-02-11 15:54] LABS: CORONAVIRUS COVID-19 NAA NEGATIVE (NEGATIVE)
[2024-02-11 15:55] LABS: INFLUENZA A NAA NEGATIVE (NEGATIVE); INFLUENZA B NAA NEGATIVE (NEGATIVE); RESPIRATORY SYNCYTIAL VIR NAA NEGATIVE (NEGATIVE)
[2024-02-11] MEDS: Lactated Ringers 1,000 ML IV ONE (16:10)
[2024-02-11 16:15] VITALS: BP 148/74; PULSE 84
[2024-02-11 16:17] LABS: BASOPHILS PERCENT AUTO 0.2 % (0.2-1.2); EOSINOPHILS ABSOLUTE AUTO 0.2 x10^3/uL (0.0-0.5); EOSINOPHILS PERCENT AUTO 1.6 % (0.0-4.0); HEMATOCRIT 41.8 % (40.0-52.0); HEMOGLOBIN 14.5 g/dL (14.0-18.0); IMMATURE GRAN ABSOLUTE AUTO 0.02 x10^3/uL (0.00-0.07); LYMPHOCYTES ABSOLUTE AUTO 1.1 x10^3/uL (1.0-4.8); LYMPHOCYTES PERCENT AUTO 11.8 % (25.0-50.0); MEAN CORPUSCULAR HEMOGLOBIN 32.7 pg (26.0-32.0); MEAN CORPUSCULAR HGB CONC 34.7 g/dL (32.0-36.0); MEAN CORPUSCULAR VOLUME 94.4 fL (78.0-93.0); MONOCYTES ABSOLUTE AUTO 1.5 x10^3/uL (0.0-0.8); MONOCYTES PERCENT AUTO 15.3 % (2.0-11.0); NEUTROPHILS ABSOLUTE AUTO 6.8 x10^3/uL (1.8-7.7); NEUTROPHILS PERCENT AUTO 70.9 % (50.0-80.0); PLATELET COUNT,PLT 246 x10^3/uL (130-400); RED BLOOD CELL COUNT 4.43 x10^6/uL (4.5-6.0); WHITE BLOOD CELL COUNT,WBC 9.6 x10^3/uL (4.0-10.0)
[2024-02-11 16:33] LABS: A/G RATIO 0.64; ALANINE AMINOTRANSFERASE,ALT 54 U/L (16-63); ALKALINE PHOSPHATASE 92 U/L (46-116); ASPARTATE AMNIOTRANSFERASE,AST 68 U/L (15-37); BILIRUBIN TOTAL 0.7 mg/dL (0.2-1.0); BLOOD UREA NITROGEN,BUN 16 mg/dL (7-18); CALCIUM 9.4 mg/dL (8.5-10.1); CARBON DIOXIDE,CO2 28 mmol/L (21-32); CHLORIDE,CL 99 mmol/L (98-107); CREATININE 1.3 mg/dL (0.70-1.30); GLUCOSE RANDOM 113 mg/dL (70-99); MAGNESIUM 1.8 mg/dL (1.8-2.4); POTASSIUM,K 4.1 mmol/L (3.5-5.1); PROTEIN TOTAL,TP 7.7 g/dL (6.4-8.2); SODIUM,NA 136 mmol/L (136-145)
[2024-02-11 16:34] LABS: ANION GAP 13.1 mmol/L (5-15); ESTIMATED GFR 53 mL/min (>=60)
[2024-02-11 16:54] LABS: APPEARANCE,URINE CLEAR (CLEAR); BILIRUBIN,URINE SMALL (NEGATIVE); COLOR,URINE DARK YELLOW (YELLOW); GLUCOSE,URINE NEGATIVE (NEGATIVE); KETONES,URINE TRACE mg/dL (NEGATIVE); LEUKOCYTE ESTERASE,URINE NEGATIVE (NEGATIVE); NITRITE,URINE NEGATIVE (NEGATIVE); OCCULT BLOOD,URINE TRACE-INTACT (NEGATIVE); PROTEIN,URINE 30 mg/dL (NEGATIVE)
[2024-02-11 17:03] LABS: BACTERIA,URINE OCCASIONAL /HPF (NOT SEEN); MUCUS,URINE MANY /LPF (NOT SEEN); RBC,URINE 0-5 /HPF (NOT SEEN); WBC,URINE 0-5 /HPF (NOT SEEN)
== END 2024-02-11 17:25 | disposition home or self-care (01) ==
LOC: VM.ED 15:04
DX: E86.0 Dehydration (principal); E78.00 Pure hypercholesterolemia, unspecified; I12.9 Hypertensive chronic kidney disease with stage 1 through stage 4 chronic kidney disease, or unspecified chronic kidney disease; N18.9 Chronic kidney disease, unspecified; J44.9 Chronic obstructive pulmonary disease, unspecified; E03.9 Hypothyroidism, unspecified; Z90.49 Acquired absence of other specified parts of digestive tract; Z79.899 Other long term (current) drug therapy; Z88.8 Allergy status to other drugs, medicaments and biological substances; Z88.0 Allergy status to penicillin; Z91.010 Allergy to peanuts
CPT/HCPCS: 0241U; 80053; 81001; 83735; 85025; 96360; 99284-25; J7120